=== PATIENT | male | born 1930 | race Caucasian/White ===

== ENCOUNTER 2017-12-04 13:33 | Emergency (ER) | payer MEDICARE, OTHER ==
[~2017-12-04] VITALS: Ht 165.1 cm; Wt 56.7 kg
[2017-12-04] MEDS ORDERED: MIRTAZAPINE 30 MG TABLET PO (14:01)
[2017-12-04] MEDS ORDERED: HYDROCODONE-ACETAMIN 5-325 MG PO (14:01)
[2017-12-04] MEDS ORDERED: NOVOLOG 100 UNIT/ML (14:01)
[2017-12-04] MEDS ORDERED: MELA3TAB52 PO (14:09)
[2017-12-04] MEDS ORDERED: DOCU-141 PO (14:09)
[2017-12-04] MEDS ORDERED: ALUM PO (14:09)
[2017-12-04] MEDS ORDERED: IPRA0.2S48 INH (14:09)
[2017-12-04] MEDS ORDERED: ONDA8TAB9 SL (14:09)
[2017-12-04] MEDS ORDERED: [UNRECOGNIZED DRUG - OTHER] PO (14:09)
[2017-12-04] MEDS ORDERED: SENN-167 PO (14:09)
[2017-12-04] MEDS ORDERED: BISA10SU8 RC (14:09)
[2017-12-04] MEDS ORDERED: ACETAMINOPHEN ES 500 MG TABLET PO ONE (15:00)
--- NOTE | 2017-12-04 15:15 | NUR ---
[facility] called for S transport back to [facility], eta 1630, trip#[id number].
[2017-12-04] MEDS ORDERED: ACETAMINOPHEN ES 500 MG TABLET ONE (15:16)
--- NOTE | 2017-12-04 16:57 | NUR ---
Pt d/c back to [facility] via [facility] BLS transport. ACI and Rx for [place] given to EMT.
== END 2017-12-04 16:58 | disposition home or self-care (01) ==
LOC: ER 13:33
DX: S52.502A Unspecified fracture of the lower end of left radius, initial encounter for closed fracture (principal); I50.9 Heart failure, unspecified; I13.0 Hypertensive heart and chronic kidney disease with heart failure and stage 1 through stage 4 chronic kidney disease, or unspecified chronic kidney disease; E11.22 Type 2 diabetes mellitus with diabetic chronic kidney disease; N18.9 Chronic kidney disease, unspecified; F17.200 Nicotine dependence, unspecified, uncomplicated; W18.30XA Fall on same level, unspecified, initial encounter; Y93.89 Activity, other specified; Y92.89 Other specified places as the place of occurrence of the external cause; Y99.8 Other external cause status
CPT/HCPCS: 73110; A4663; A9150

== ENCOUNTER 2017-12-10 12:55 | Emergency (ER) | payer MEDICARE, OTHER ==
[~2017-12-10] VITALS: Ht 160 cm; Wt 54.4 kg
[~2017-12-10 12:55] MED LIST: ALUM PO; BISA10SU8 RC; DOCU-141 PO; HYDROCODONE-ACETAMIN 5-325 MG PO; IPRA0.2S48 INH; MELA3TAB52 PO; MIRTAZAPINE 30 MG TABLET PO; NOVOLOG 100 UNIT/ML; ONDA8TAB9 SL; SENN-167 PO; [UNRECOGNIZED DRUG - OTHER] PO
--- NOTE | 2017-12-10 13:41 | NUR ---
PT IS IN ROOM #1B. DR PICKARD EVALUATED THE PT.
--- NOTE | 2017-12-10 13:58 | NUR ---
Called Med response for Tx back to facility, trip # [id number], ETA 1 hour.
--- NOTE | 2017-12-10 14:32 | NUR ---
REPORT WAS GIVEN TO PT'S NURSING FACILITY.
--- NOTE | 2017-12-10 15:28 | NUR ---
PT WAS D/C TO HIS NURSING FACILITY VIA BLS AMBULANCE. REPORT WAS GIVEN TO AMBULANCE EMT AND TO NURSING FACILITY DYNAMOMETER TUNER.
[2017-12-10 15:41] VITALS: BP 159/75
== END 2017-12-10 15:42 | disposition home or self-care (01) ==
LOC: ER 12:55
DX: S62.102D Fracture of unspecified carpal bone, left wrist, subsequent encounter for fracture with routine healing (principal); I25.10 Atherosclerotic heart disease of native coronary artery without angina pectoris; I25.2 Old myocardial infarction; K21.9 Gastro-esophageal reflux disease without esophagitis; I12.0 Hypertensive chronic kidney disease with stage 5 chronic kidney disease or end stage renal disease; N18.6 End stage renal disease; E11.9 Type 2 diabetes mellitus without complications; F17.200 Nicotine dependence, unspecified, uncomplicated; X58.XXXD Exposure to other specified factors, subsequent encounter
CPT/HCPCS: 29125; 73110; 99284; A4663

== ENCOUNTER 2018-03-05 17:02 | Inpatient (IN) | payer MEDICARE, OTHER ==
[~2018-03-05] VITALS: Ht 152.4 cm; Wt 47.0 kg
[~2018-03-05 17:02] MED LIST changes: -SENN-167 PO; +SENN-168 PO
--- NOTE | 2018-03-05 17:04 | NUR ---
Dr Song at the bedside for MSE.
[2018-03-05] MEDS ORDERED: HALOPERIDOL LACTATE 5 MG/1 ML VIAL IV ONE (17:15)
[2018-03-05] MEDS ORDERED: FUROSEMIDE 20 MG/2 ML VIAL IV ONE (17:15)
[2018-03-05] MEDS ORDERED: MORPHINE SULFATE 2 MG/1 ML DISP.SYRIN IV ONE (17:15)
[2018-03-05] MEDS ORDERED: LORAZEPAM 2 MG/1 ML VIAL IV ONE (17:15)
[2018-03-05] MEDS ORDERED: FUROSEMIDE 40 MG/4 ML VIAL ONE (17:16)
[2018-03-05] MEDS ORDERED: HALOPERIDOL LACTATE 5 MG/1 ML VIAL ONE (17:16)
[2018-03-05] MEDS ORDERED: LORAZEPAM 2 MG/1 ML VIAL ONE (17:17)
[2018-03-05] MEDS ORDERED: MORPHINE SULFATE 4 MG/1 ML DISP.SYRIN ONE (17:17)
[2018-03-05] MEDS ORDERED: DEXT15DR6 RIGHTEYE (17:30)
[2018-03-05] MEDS ORDERED: HYDR-3326 PO (17:30)
[2018-03-05] MEDS ORDERED: MAG355OR18 PO (17:30)
[2018-03-05] MEDS ORDERED: ALBU2.5V38 IH (17:30)
[2018-03-05] MEDS ORDERED: MULT-213 PO (17:30)
[2018-03-05] MEDS ORDERED: ACET-2154 PO (17:30)
[2018-03-05] MEDS ORDERED: NOVOLOG (17:30)
[2018-03-05] MEDS ORDERED: MIRT15TA7 PO (17:30)
[2018-03-05 17:33] LABS: BASOPHILS # (AUTO) 0.1 K/uL (0.0-8.0); BASOPHILS % (AUTO) 0.6 % (0.0-2.0); EOSINOPHILS # (AUTO) 0.2 K/uL (0.0-0.7); EOSINOPHILS % (AUTO) 1.1 % (0.0-7.0); HEMATOCRIT 29.1 % (36.7-47.1); HEMOGLOBIN 9.6 g/dL (12.5-16.3); LYMPHOCYTES # (AUTO) 2.4 K/uL (20.0-40.0); LYMPHOCYTES % (AUTO) 16.9 % (20.5-51.5); MEAN CORPUSCULAR HEMOGLOBIN 29.6 uug (23.8-33.4); MEAN CORPUSCULAR HGB CONC 33 g/dL (32.5-36.3); MEAN CORPUSCULAR VOLUME 89.6 fL (73.0-96.2); MONOCYTES # (AUTO) 0.9 K/uL (2.0-10.0); MONOCYTES % (AUTO) 6.5 % (0.0-11.0); NEUTROPHILS # (AUTO) 10.6 K/uL (1.8-8.9); NEUTROPHILS % (AUTO) 74.9 % (38.5-71.5); PLATELET COUNT (AUTO) 257 K/uL (152-348); RED BLOOD CELL COUNT(AUTO) 3.25 MIL/uL (4.06-5.63); WHITE BLOOD COUNT (AUTO) 14.1 K/uL (3.6-10.2)
[2018-03-05 17:40] LABS: CARBON DIOXIDE 20 mmol/L (21-32); CHLORIDE 95 mmol/L (98-107); CREATININE 2.6 mg/dL (0.6-1.3); GLUCOSE 198 mg/dL (74-106); POTASSIUM 4.4 mmol/L (3.5-5.1); UREA NITROGEN, BLOOD 48 mg/dL (7-18)
[2018-03-05 17:52] LABS: ALANINE AMINOTRANSFERASE 14 U/L (16-63); ALKALINE PHOSPHATASE 84 U/L (50-136); ASPARTATE AMINOTRANSFERASE 15 U/L (15-37); BILIRUBIN,DIRECT 0.2 mg/dL (0.0-0.2); BILIRUBIN,TOTAL 0.7 mg/dL (0.2-1.0)
--- NOTE | 2018-03-05 17:55 | NUR ---
Patient is resting comfortably in bed with eyes closed, NAD noted.
--- NOTE | 2018-03-05 18:15 | NUR ---
Dr Moore spoke to ER MD and pt will be admitted to TELE.
[2018-03-05] MEDS ORDERED: ACETAMINOPHEN 650 MG SUPP.RECT RC PRN (18:45)
[2018-03-05] MEDS ORDERED: MORPHINE SULFATE 2 MG/1 ML DISP.SYRIN IV PRN (18:45)
[2018-03-05] MEDS ORDERED: ONDANSETRON 4 MG/2 ML VIAL IV PRN (18:45)
--- NOTE | 2018-03-05 18:59 | NUR ---
PATIENT CAME FROM ER BY MORENO A/O *1 , AGITATED AT TIMES. NO DISTRESS AT THE MOMENT. SAFETY MEASURES REINFORCED, RAILS UP *2, LOW BED POSITION. WILL GIVE REPORT TO UPCOMING NURSE NITIN
[2018-03-05 20:00] VITALS: BP 119/61
[2018-03-05] MEDS ORDERED: ENOXAPARIN SODIUM 30 MG/0.3 ML DISP.SYRIN SQ SCH (21:00)
[2018-03-05] MEDS: MIRTAZAPINE 15 MG TABLET PO SCH (21:00)
[2018-03-06] MEDS: FUROSEMIDE 40 MG/4 ML VIAL IV SCH ×2 (00:12→05:38)
[2018-03-06 00:20] VITALS: BP 130/66
[2018-03-06] MEDS: MORPHINE SULFATE 4 MG/1 ML DISP.SYRIN IV PRN ×2 (02:02→13:41)
[2018-03-06] MEDS ORDERED: ASPIRIN 81 MG TAB.CHEW PO ONE (03:00)
[2018-03-06] MEDS ORDERED: HEPARIN SODIUM,PORCINE 5,000 UNITS/ML VIAL IVP SCH (03:00)
[2018-03-06] MEDS ORDERED: LORAZEPAM 2 MG/1 ML VIAL IV ONE (03:00)
[2018-03-06] MEDS ORDERED: HEPARIN/D5W DRIP 500 ML ONE (03:13)
[2018-03-06] MEDS: HEPARIN/D5W DRIP 500 ML IV PRN (03:20)
--- NOTE | 2018-03-06 05:06 | NUR ---
patient rested fairly well; c/o pain, morphine given x1; 3rd troponin 3.212, relayed to Dr Colmenares and with new orders; started on heparin drip at 15 ml/hr; plan of care initiated; continue to monitor; VSS; condom cath in place.
[2018-03-06 05:30] VITALS: BP 136/75
[2018-03-06 06:17] LABS: BASOPHILS # (AUTO) 0.1 K/uL (0.0-8.0); BASOPHILS % (AUTO) 0.3 % (0.0-2.0); HEMATOCRIT 30.6 % (36.7-47.1); HEMOGLOBIN 10.1 g/dL (12.5-16.3); LYMPHOCYTES # (AUTO) 1.5 K/uL (20.0-40.0); LYMPHOCYTES % (AUTO) 8.1 % (20.5-51.5); MEAN CORPUSCULAR HEMOGLOBIN 29.4 uug (23.8-33.4); MEAN CORPUSCULAR HGB CONC 33 g/dL (32.5-36.3); MEAN CORPUSCULAR VOLUME 88.8 fL (73.0-96.2); MONOCYTES # (AUTO) 0.7 K/uL (2.0-10.0); MONOCYTES % (AUTO) 3.9 % (0.0-11.0); NEUTROPHILS # (AUTO) 16.3 K/uL (1.8-8.9); NEUTROPHILS % (AUTO) 87.7 % (38.5-71.5); PLATELET COUNT (AUTO) 230 K/uL (152-348); RED BLOOD CELL COUNT(AUTO) 3.45 MIL/uL (4.06-5.63); WHITE BLOOD COUNT (AUTO) 18.6 K/uL (3.6-10.2)
[2018-03-06 06:40] LABS: CARBON DIOXIDE 21 mmol/L (21-32); CHLORIDE 93 mmol/L (98-107); CHOLESTEROL 211 mg/dL (<200); HDL CHOLESTEROL 68 mg/dL (40-60); MAGNESIUM 1.7 mg/dL (1.8-2.4); PHOSPHOROUS 5.2 mg/dL (2.5-4.9); POTASSIUM 5.1 mmol/L (3.5-5.1); TRIGLYCERIDES 59 MG/DL (30-150); UREA NITROGEN, BLOOD 55 mg/dL (7-18)
[2018-03-06 06:41] LABS: THYROID STIMULATING HORMONE 1.882 mIU/mL (0.358-3.740)
[2018-03-06 06:52] LABS: GLUCOSE 375 mg/dL (74-106)
--- NOTE | 2018-03-06 07:31 | NUR ---
TROPONIN 20+ this AM; paged DR Colmenares, Dr Roberson and also messaged LIZETT Gallegos; awaiting call back; report given to Glenys Gaspar RN;
--- NOTE | 2018-03-06 07:45 | NUR ---
Patient is resting in bed, no distress at the moment, Heparin is running 750units/hr, no signs of visual bleeding, no complains at the moment. TROPONIN 20+ this AM;LANCE Joshi paged DR Colmenares, Dr Roberson and also messaged LIZETT Gallegos; awaiting call back. Cont to monitor Trop, S/S bleeding, Chest pain, will follow up with lab PTT 0900 scheduled Safety measures reinforced, cont w/treatment and monitoring
[2018-03-06] MEDS: PANTOPRAZOLE SODIUM 40 MG VIAL IV SCH (09:48)
--- NOTE | 2018-03-06 10:48 | NUR ---
aPTT result 37.9, increase 100unit/hr. Heparin currently running at 850units/hr. Orders noted and carried out. EF 35%, pt Telemetry shows him going from sinus tachy to sinus rhythm. Rosy PHOENIX notified.
[2018-03-06 11:11] VITALS: BP 118/66
[2018-03-06] MEDS: ASPIRIN 81 MG TAB.CHEW PO SCH (12:45)
[2018-03-06] MEDS: ATORVASTATIN 40 MG TABLET PO SCH ×2 (12:45→21:00)
[2018-03-06] MEDS: CARVEDILOL 6.25 MG TABLET PO SCH ×2 (12:45→18:00)
[2018-03-06] MEDS ORDERED: CLOPIDOGREL 75 MG TABLET PO ONE (12:45)
[2018-03-06] MEDS ORDERED: DEXTROSE 50% 50 ML DISP.SYRIN IV PRN (13:15)
[2018-03-06] MEDS: BLOOD SUGAR DIAGNOSTIC 1 EACH STRIP VI SCH ×4 (13:15→21:19)
--- NOTE | 2018-03-06 14:00 | NUR ---
ZHU CATH WAS INSERTED #16 BY LANCE GANDARA. UA WAS SENT TO THE LAB
[2018-03-06 14:26] LABS: *BILIRUBIN,URIN NEGATIVE (NEGATIVE); *BLOOD, URINE Trace-lysed (NEGATIVE); *CLARITY,URINE CLEAR (CLEAR); *COLOR,URINE LIGHT YELLOW (YELLOW); *KETONES,URINE NEGATIVE (NEGATIVE); *UROBILINOGEN,URINE 0.2 E.U./dl (NORMAL); LEUKOCYTE ESTERASE ,URINE NEGATIVE (NEGATIVE); NITRITE, URINE NEGATIVE (NEGATIVE); UGLUCOSE 1+ (NEGATIVE)
[2018-03-06 14:46] LABS: SQUAMOUS EPITHELIAL CELL,UR NONE SEEN /HPF (NONE SEEN); WBC,URINE 0-3 /HPF (0-3)
[2018-03-06 14:47] LABS: BACTERIA,URINE NONE SEEN /HPF (NONE SEEN)
[2018-03-06 14:49] LABS: URINE AMORPHOUS URATE FEW /HPF
[2018-03-06 15:15] VITALS: BP 115/61
[2018-03-06 17:10] LABS: *CREATININE,URINE 36.6 mg/dL (30-125); *URINE TOTAL PROTEIN RANDOM 98.1 mg/dL (<150/24HR)
[2018-03-06] MEDS: INSULIN REGULAR, HUMAN 300 UNIT/3 ML VIAL SQ PRN ×2 (17:32→21:26)
[2018-03-06] MEDS: IV NS 1000 ML 1,000 ML IV PRN (17:50)
--- NOTE | 2018-03-06 18:02 | NUR ---
END OF SHIFT PATIENT IS RESTING IN BED, A/O *1, AGGRESSIVE AT TIMES. NO DISTRESS AT THE MOMENT. NC @2L SAT 96%, HEPARIN DRIP IS RUNNING AT 950 UN/HR AT THIS MOMENT. WAS INCREASED AT 1547 PER PROTOCOL BECAUSE APTT CAME OUT @1546 35. 3. PATIENT BEFORE WAS ON HEPARIN DRIP FROM [id number] ON 850 UN/HR. BEFORE ( BEGINNING OF SHIFT) [id number] WAS RUNNING ON 750 UN/HR. WAS SEEN BY LENS COATER, PHYSICIAN, DIETITIAN TODAY--> SEE COMMENTS. SWALLOW EVAL. STILL NEEDS TO BE DONE. WOUND CONSULT EVALUATED, CULTURES SENT-> WOUND DRESSING WAS DONE ACCORDANTLY BY ME. NEW IV WAS STARTED ON LEFT FOREARM 22G AND NS WAS STARTED @60ML/HR. CONT TO MONITOR.
[2018-03-06 19:57] VITALS: BP 120/68
--- NOTE | 2018-03-06 20:00 | NUR ---
AWAKE. REFUSED TO BE TOUCHED.COMBATIVE, REFUSED PILLS,SPITS.DRESSINGS ON THE FOREHEAD DRY AND INTACT,LEFT HEEL DRESSINS DRY AND INTACT.REPOSITION FOR COMFORT. HEPARIN DRIP INFUSING WELL ON RIGHT FOREARM.
[2018-03-06] MEDS: MIRTAZAPINE 15 MG TABLET PO SCH (21:00)
--- NOTE | 2018-03-06 23:55 | NUR ---
PTT 39.6 INCREASED HEPARIN TO 1050 UNITS.COMBATIVE,REFUSED TO BE TOUCHED REPOSITIONED FOR COMFORT.SLEPT AT SHORT INTERVALS.
[2018-03-07] VITALS: BP 127/72
[2018-03-07 04:00] VITALS: BP 130/70
[2018-03-07] MEDS ORDERED: HEPARIN/D5W DRIP 500 ML ONE (05:05)
[2018-03-07] MEDS: BLOOD SUGAR DIAGNOSTIC 1 EACH STRIP VI SCH ×4 (05:32→21:03)
[2018-03-07] MEDS: HEPARIN/D5W DRIP 500 ML IV PRN (05:43)
[2018-03-07 06:05] LABS: BASOPHILS # (AUTO) 0.1 K/uL (0.0-8.0); BASOPHILS % (AUTO) 0.4 % (0.0-2.0); EOSINOPHILS # (AUTO) 0.1 K/uL (0.0-0.7); EOSINOPHILS % (AUTO) 0.3 % (0.0-7.0); HEMATOCRIT 29.3 % (36.7-47.1); HEMOGLOBIN 9.6 g/dL (12.5-16.3); LYMPHOCYTES # (AUTO) 2.1 K/uL (20.0-40.0); LYMPHOCYTES % (AUTO) 10.2 % (20.5-51.5); MEAN CORPUSCULAR HEMOGLOBIN 28.9 uug (23.8-33.4); MEAN CORPUSCULAR HGB CONC 33 g/dL (32.5-36.3); MONOCYTES # (AUTO) 1.2 K/uL (2.0-10.0); MONOCYTES % (AUTO) 5.9 % (0.0-11.0); NEUTROPHILS % (AUTO) 83.2 % (38.5-71.5); PLATELET COUNT (AUTO) 249 K/uL (152-348); RED BLOOD CELL COUNT(AUTO) 3.33 MIL/uL (4.06-5.63); WHITE BLOOD COUNT (AUTO) 20.4 K/uL (3.6-10.2)
[2018-03-07 06:20] LABS: ALANINE AMINOTRANSFERASE 18 U/L (16-63); ALKALINE PHOSPHATASE 77 U/L (50-136); ASPARTATE AMINOTRANSFERASE 67 U/L (15-37); BILIRUBIN,TOTAL 0.5 mg/dL (0.2-1.0); CARBON DIOXIDE 23 mmol/L (21-32); CHLORIDE 98 mmol/L (98-107); CREATININE 3.2 mg/dL (0.6-1.3); GLUCOSE 97 mg/dL (74-106); MAGNESIUM 1.7 mg/dL (1.8-2.4); PHOSPHOROUS 5.1 mg/dL (2.5-4.9); POTASSIUM 4.9 mmol/L (3.5-5.1); TOTAL PROTEIN, SERUM 7.6 g/dL (6.4-8.2); UREA NITROGEN, BLOOD 64 mg/dL (7-18)
[2018-03-07] MEDS ORDERED: HEPARIN SODIUM,PORCINE 5,000 UNITS/ML VIAL IV PRN (07:15)
[2018-03-07] MEDS: CARVEDILOL 6.25 MG TABLET PO SCH ×3 (08:00→17:28)
[2018-03-07] MEDS: CLOPIDOGREL 75 MG TABLET PO SCH ×2 (08:22→09:00)
[2018-03-07] MEDS: ASPIRIN 81 MG TAB.CHEW PO SCH ×2 (08:22→09:00)
[2018-03-07] MEDS: PANTOPRAZOLE SODIUM 40 MG VIAL IV SCH (08:22)
[2018-03-07] MEDS: SODIUM HYPOCHLORITE 0.125% 473 ML BOTTLE TP SCH (08:52)
--- NOTE | 2018-03-07 09:43 | NUR ---
The patient refused the exams. LANCE Purvis noted. RN will call the tech when the patient is willing to get the exams.
[2018-03-07] MEDS ORDERED: VANCOMYCIN IV 1 G in PREMIXED 0 EACH IV SCH (11:30)
[2018-03-07] MEDS ORDERED: PIPERACILLIN/TAZOBACTAM/D5W 3.375 G in PREMIXED 1 EACH IV SCH (11:30)
[2018-03-07 11:40] VITALS: BP 133/73
--- NOTE | 2018-03-07 12:01 | NUR ---
Clinical Pharmacy Note: Vancomycin Pharmacy to Dose Subjective: To start vancomycin in this 87 y/o male for indication of "suspected infection" (wbc 20.4, AMS, IGOR, foot wound cx pending gram neg rods and staph). Zosyn also started Objective: weight 50kg height 152cm BUN 64 Scr 3.2 (no HD) Wbc 20.4 temp 98.5 Assessment/Plan Will dose one time 750mg vancomycin and order random with tomorrow am labs. Will dose per level as renal function reduced. Will check level tomorrow and dose again if indicated. Will follow
[2018-03-07] MEDS ORDERED: VANCOMYCIN IV 750 MG in IV DEXTROSE 5% 250 ML IV ONE (13:00)
[2018-03-07] MEDS: PIPERACILLIN/TAZOBACTAM/D5W 2.25 G in PREMIXED 1 EACH IV SCH ×2 (15:29→21:22)
[2018-03-07 16:12] VITALS: BP 109/58
[2018-03-07] MEDS: ENSURE ENLIVE (VAN) 240 ML LIQUID PO SCH (17:26)
[2018-03-07] MEDS: INSULIN REGULAR, HUMAN 300 UNIT/3 ML VIAL SQ PRN ×2 (17:31→20:40)
[2018-03-07] MEDS: IV NS 1000 ML 1,000 ML IV PRN (19:06)
[2018-03-07 20:00] VITALS: BP 106/56
[2018-03-07] MEDS: ATORVASTATIN 40 MG TABLET PO SCH (20:41)
[2018-03-07] MEDS: MIRTAZAPINE 15 MG TABLET PO SCH (20:41)
[2018-03-08 00:23] VITALS: BP 110/60
[2018-03-08] MEDS: MORPHINE SULFATE 4 MG/1 ML DISP.SYRIN IV PRN ×2 (00:59→11:43)
[2018-03-08] MEDS: HEPARIN/D5W DRIP 500 ML IV PRN (03:41)
[2018-03-08 04:30] VITALS: BP 106/54
[2018-03-08] MEDS: PIPERACILLIN/TAZOBACTAM/D5W 2.25 G in PREMIXED 1 EACH IV SCH ×3 (05:03→21:37)
--- NOTE | 2018-03-08 06:00 | NUR ---
NURSING NOTES Patient rested well in between care; requested for tea and drak with aspiration precaution; repositioned q2h; needs attended; continue to monitor; continue plan of care.
[2018-03-08 06:26] LABS: BASOPHILS # (AUTO) 0.1 K/uL (0.0-8.0); BASOPHILS % (AUTO) 0.6 % (0.0-2.0); EOSINOPHILS # (AUTO) 0.1 K/uL (0.0-0.7); EOSINOPHILS % (AUTO) 0.9 % (0.0-7.0); HEMATOCRIT 25.2 % (36.7-47.1); HEMOGLOBIN 8.2 g/dL (12.5-16.3); LYMPHOCYTES # (AUTO) 1.4 K/uL (20.0-40.0); LYMPHOCYTES % (AUTO) 8.2 % (20.5-51.5); MEAN CORPUSCULAR HEMOGLOBIN 29.2 uug (23.8-33.4); MEAN CORPUSCULAR HGB CONC 33 g/dL (32.5-36.3); MEAN CORPUSCULAR VOLUME 89.1 fL (73.0-96.2); MONOCYTES # (AUTO) 0.9 K/uL (2.0-10.0); MONOCYTES % (AUTO) 5.4 % (0.0-11.0); NEUTROPHILS # (AUTO) 14.1 K/uL (1.8-8.9); NEUTROPHILS % (AUTO) 84.9 % (38.5-71.5); PLATELET COUNT (AUTO) 193 K/uL (152-348); RED BLOOD CELL COUNT(AUTO) 2.83 MIL/uL (4.06-5.63); WHITE BLOOD COUNT (AUTO) 16.6 K/uL (3.6-10.2)
[2018-03-08] MEDS: BLOOD SUGAR DIAGNOSTIC 1 EACH STRIP VI SCH ×4 (06:30→20:30)
[2018-03-08 06:39] LABS: CARBON DIOXIDE 23 mmol/L (21-32); CHLORIDE 99 mmol/L (98-107); CREATININE 3.2 mg/dL (0.6-1.3); GLUCOSE 118 mg/dL (74-106); MAGNESIUM 1.8 mg/dL (1.8-2.4); PHOSPHOROUS 6.1 mg/dL (2.5-4.9); POTASSIUM 4.5 mmol/L (3.5-5.1)
[2018-03-08 06:48] LABS: UREA NITROGEN, BLOOD 77 mg/dL (7-18)
[2018-03-08] MEDS: CLOPIDOGREL 75 MG TABLET PO SCH (08:07)
[2018-03-08] MEDS: CARVEDILOL 6.25 MG TABLET PO SCH ×2 (08:07→17:26)
[2018-03-08] MEDS: PANTOPRAZOLE SODIUM 40 MG VIAL IV SCH (08:07)
[2018-03-08] MEDS: ASPIRIN 81 MG TAB.CHEW PO SCH (08:08)
[2018-03-08] MEDS: SODIUM HYPOCHLORITE 0.125% 473 ML BOTTLE TP SCH (08:09)
[2018-03-08] MEDS: ENSURE ENLIVE (VAN) 240 ML LIQUID PO SCH ×2 (08:13→17:19)
[2018-03-08] MEDS ORDERED: VANCOMYCIN IV 750 MG in IV DEXTROSE 5% 250 ML IV ONE (09:00)
--- NOTE | 2018-03-08 10:00 | NUR ---
Clinical Pharmacy Note: Vancomycin Pharmacy to Dose Subjective: To continue vancomycin in this 87 y/o male for indication of "suspected infection" (wbc 20.4, AMS, IGOR, foot wound cx pending gram neg rods and staph). Zosyn also started, not extended infusion dosing as per RNs pt repeatedly pulls IVs out, PICC line order placed 03/07 Objective: weight 50kg height 152cm BUN 77 Scr 3.2 Wbc 16.6 temp 98 Random with am labs today 10.9 Assessment/Plan Will dose another one time 750mg vancomycin and order random with tomorrow am labs. Will dose per level as renal function reduced. Will check level tomorrow and dose again if indicated. Will follow
[2018-03-08 11:30] VITALS: BP 115/54
--- NOTE | 2018-03-08 11:30 | NUR ---
Patient refused swallow eval x 2 days. Swallow eval done by RN. Daughter brought dentures. Patient able to feed himself and drink fluids with no signs of coughing, sob or aspiration.
[2018-03-08] MEDS: INSULIN REGULAR, HUMAN 300 UNIT/3 ML VIAL SQ PRN ×2 (11:58→20:33)
[2018-03-08 16:31] VITALS: BP 97/56
[2018-03-08] MEDS: IV NS 1000 ML 1,000 ML IV PRN (19:53)
[2018-03-08 20:03] VITALS: BP 120/63
[2018-03-08] MEDS: ATORVASTATIN 40 MG TABLET PO SCH (20:31)
[2018-03-08] MEDS: MIRTAZAPINE 15 MG TABLET PO SCH (20:31)
[2018-03-09] MEDS: MORPHINE SULFATE 4 MG/1 ML DISP.SYRIN IV PRN ×2 (02:53→20:08)
[2018-03-09 05:15] VITALS: BP 107/59
[2018-03-09] MEDS: PIPERACILLIN/TAZOBACTAM/D5W 2.25 G in PREMIXED 1 EACH IV SCH ×3 (05:29→21:07)
[2018-03-09 05:46] LABS: BASOPHILS # (AUTO) 0.1 K/uL (0.0-8.0); BASOPHILS % (AUTO) 0.6 % (0.0-2.0); EOSINOPHILS # (AUTO) 0.2 K/uL (0.0-0.7); EOSINOPHILS % (AUTO) 1.3 % (0.0-7.0); HEMATOCRIT 24.5 % (36.7-47.1); LYMPHOCYTES # (AUTO) 1.4 K/uL (20.0-40.0); LYMPHOCYTES % (AUTO) 8.7 % (20.5-51.5); MEAN CORPUSCULAR HEMOGLOBIN 29.5 uug (23.8-33.4); MEAN CORPUSCULAR HGB CONC 33 g/dL (32.5-36.3); MEAN CORPUSCULAR VOLUME 89.8 fL (73.0-96.2); MONOCYTES % (AUTO) 6.3 % (0.0-11.0); NEUTROPHILS # (AUTO) 13.3 K/uL (1.8-8.9); NEUTROPHILS % (AUTO) 83.1 % (38.5-71.5); PLATELET COUNT (AUTO) 179 K/uL (152-348); RED BLOOD CELL COUNT(AUTO) 2.73 MIL/uL (4.06-5.63)
[2018-03-09 05:58] LABS: CARBON DIOXIDE 20 mmol/L (21-32); CHLORIDE 97 mmol/L (98-107); CREATININE 3.7 mg/dL (0.6-1.3); GLUCOSE 219 mg/dL (74-106); MAGNESIUM 1.6 mg/dL (1.8-2.4); PHOSPHOROUS 6.5 mg/dL (2.5-4.9); POTASSIUM 4.5 mmol/L (3.5-5.1); VANCOMYCIN,RANDOM 18.8 ug/mL (18.0-26.0)
[2018-03-09 06:01] LABS: UREA NITROGEN, BLOOD 83 mg/dL (7-18)
--- NOTE | 2018-03-09 06:20 | NUR ---
End of Shift Report Patient rested well in between care; dressing to PICC line done; pt refused his left foot dressing changed; c/o pain x1 and given with Morphine and rested; pt is screaming this Am and stating he wants to go home today; reorientation given; continue to monitor; continue plan of care.
[2018-03-09] MEDS: BLOOD SUGAR DIAGNOSTIC 1 EACH STRIP VI SCH ×4 (06:41→21:08)
--- NOTE | 2018-03-09 07:30 | NUR ---
Received patient awake in bed not in any form of distress. Patient is alert and oriented x 2. On oxygen support 2lpm via nasal cannula, tolerated. With ongoing IVF at right upper arm PICC line, patent and intact with dressing. With permacath at right upper chest with dressing, intact. With James catheter to urine bag, draining well. Noted clean and intact dressing of left heel. Monitored patient for complaints of pain. Bed in low position, side rails up x 2, call light within reach. Ensured patient safety and comfort. Will continue to monitor.
[2018-03-09] MEDS: INSULIN REGULAR, HUMAN 300 UNIT/3 ML VIAL SQ PRN ×3 (07:46→16:54)
[2018-03-09] MEDS: CARVEDILOL 6.25 MG TABLET PO SCH ×3 (08:00→17:41)
[2018-03-09] MEDS: ASPIRIN 81 MG TAB.CHEW PO SCH ×2 (08:25→09:00)
[2018-03-09] MEDS: CLOPIDOGREL 75 MG TABLET PO SCH ×2 (08:25→09:00)
[2018-03-09] MEDS: PANTOPRAZOLE SODIUM 40 MG VIAL IV SCH (08:26)
[2018-03-09] MEDS: SODIUM HYPOCHLORITE 0.125% 473 ML BOTTLE TP SCH (08:26)
[2018-03-09] MEDS: ENSURE ENLIVE (VAN) 240 ML LIQUID PO SCH ×2 (08:30→17:00)
[2018-03-09] MEDS ORDERED: VANCOMYCIN IV 750 MG in IV DEXTROSE 5% 250 ML IV ONE (10:00)
[2018-03-09] MEDS ORDERED: HYDROMORPHONE 1 MG/1 ML DISP.SYRIN IV ONE (10:15)
[2018-03-09] MEDS ORDERED: LIDOCAINE HCL 1% 20 ML VIAL IJ PRN (10:15)
--- NOTE | 2018-03-09 10:30 | NUR ---
Patient seen and examined by Dr. Mitchell, noted patient for left heel debridement. Dr. Mitchell called patient's daughter for consent to do the procedure, consent attached to chart. Assisted MD to do debridement, one time dilaudid 0.5mg IV given for pain. Patient tolerated the procedure.
[2018-03-09] MEDS ORDERED: MAGNESIUM SULFATE/D5W 100 ML IV SCH (10:45)
[2018-03-09] MEDS ORDERED: HYDROMORPHONE 1 MG/1 ML DISP.SYRIN IV PRN (10:45)
[2018-03-09 11:02] VITALS: BP 109/58
[2018-03-09] MEDS: SERTRALINE HCL 50 MG TABLET PO SCH (11:44)
[2018-03-09] MEDS ORDERED: ALBUTEROL SULFATE 1.25 MG/3 ML NEBU NEB PRN (11:45)
[2018-03-09] MEDS ORDERED: IPRATROPIUM BROMIDE 0.5 MG/2.5 ML NEBU NEB PRN (11:45)
[2018-03-09 15:07] VITALS: BP 105/64
--- NOTE | 2018-03-09 15:24 | NUR ---
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 Zosyn also started, not extended infusion dosing as per RNs pt repeatedly pulls IVs out, PICC line order placed 03/07 Objective: weight 50kg height 152cm BUN 83 Scr 3.7 Wbc 16 temp 98 Random with am labs today 18.8 Assessment/Plan Will dose another one time 750mg vancomycin (given today at 1000)and order random with tomorrow am labs. Will dose per level as renal function reduced. Will check level tomorrow and dose again if indicated. Will Addendum: 03/09/18 at 1529 by ZEE WATSON VANCOMYCIN RANDOM IS ORDERED FOR TOMORROW AT 1500. WILL FOLLOW THE LEVEL FOR FURTHER DOSING.
[2018-03-09] MEDS: IV NS 1000 ML 1,000 ML IV PRN (15:34)
--- NOTE | 2018-03-09 16:00 | NUR ---
Received a call from Jesus Salazar to discontinue dilaudid IV for pain - done.
--- NOTE | 2018-03-09 17:30 | NUR ---
Patient still refusing too eat much and just drinks a little bit of coffee. Noted patient is Farsi speaking, Nenita, patient's daughter called and had her speak with patient to translate and try to encourage the patient to eat. Patient food preference noted and food request noted by dietary, however patient just ate a little bit of fruit for dinner.
--- NOTE | 2018-03-09 18:11 | NUR ---
Patient awake in bed not in any form of distress. Patient is alert and oriented x 2, farsi speaking. On oxygen support 2lpm via nasal cannula, tolerated. With ongoing IVF at right upper arm PICC line, patent and intact with dressing. With permacath at right upper chest with dressing, intact. With James catheter to urine bag, draining well. Noted clean and intact dressing of left heel. Both heels offloaded. Turned to sides. No complaints of pain made after wound debridement. Bed in low position, side rails up x 2, call light within reach. Ensured patient safety and comfort.
[2018-03-09] MEDS ORDERED: MORPHINE SULFATE 2 MG/1 ML DISP.SYRIN IV PRN (18:30)
[2018-03-09 20:00] VITALS: BP 115/72
[2018-03-09] MEDS: MIRTAZAPINE 15 MG TABLET PO SCH (20:07)
[2018-03-09] MEDS: CULTURELLE CAPSULE PO SCH (20:07)
[2018-03-09] MEDS: ATORVASTATIN 40 MG TABLET PO SCH (21:08)
[2018-03-10] MEDS: MORPHINE SULFATE 4 MG/1 ML DISP.SYRIN IV PRN ×2 (02:18→10:07)
[2018-03-10 04:00] VITALS: BP 139/64
[2018-03-10] MEDS: PIPERACILLIN/TAZOBACTAM/D5W 2.25 G in PREMIXED 1 EACH IV SCH ×3 (05:22→21:29)
--- NOTE | 2018-03-10 06:00 | NUR ---
PAtient rested well in between care; no acute distress; c/o pain, medicated accordingly; dressing changed to left heel; continue to monitor; continue plan of care.
[2018-03-10] MEDS: PANTOPRAZOLE SODIUM 40 MG TABLET.DR PO SCH (06:08)
[2018-03-10] MEDS: BLOOD SUGAR DIAGNOSTIC 1 EACH STRIP VI SCH ×4 (06:09→21:00)
[2018-03-10 06:33] LABS: BASOPHILS % (AUTO) 0.3 % (0.0-2.0); EOSINOPHILS # (AUTO) 0.1 K/uL (0.0-0.7); EOSINOPHILS % (AUTO) 0.7 % (0.0-7.0); HEMATOCRIT 23.7 % (36.7-47.1); HEMOGLOBIN 7.7 g/dL (12.5-16.3); LYMPHOCYTES # (AUTO) 1.2 K/uL (20.0-40.0); LYMPHOCYTES % (AUTO) 7.3 % (20.5-51.5); MEAN CORPUSCULAR HEMOGLOBIN 30.1 uug (23.8-33.4); MEAN CORPUSCULAR HGB CONC 32 g/dL (32.5-36.3); MEAN CORPUSCULAR VOLUME 93.3 fL (73.0-96.2); MONOCYTES % (AUTO) 5.9 % (0.0-11.0); NEUTROPHILS # (AUTO) 14.2 K/uL (1.8-8.9); NEUTROPHILS % (AUTO) 85.8 % (38.5-71.5); PLATELET COUNT (AUTO) 170 K/uL (152-348); RED BLOOD CELL COUNT(AUTO) 2.54 MIL/uL (4.06-5.63); WHITE BLOOD COUNT (AUTO) 16.6 K/uL (3.6-10.2)
[2018-03-10 06:46] LABS: CARBON DIOXIDE 19 mmol/L (21-32); CHLORIDE 102 mmol/L (98-107); CREATININE 3.9 mg/dL (0.6-1.3); GLUCOSE 88 mg/dL (74-106); MAGNESIUM 1.9 mg/dL (1.8-2.4); PHOSPHOROUS 6.3 mg/dL (2.5-4.9); POTASSIUM 4.3 mmol/L (3.5-5.1)
[2018-03-10 06:47] LABS: UREA NITROGEN, BLOOD 89 mg/dL (7-18)
--- NOTE | 2018-03-10 07:25 | NUR ---
PATIENT IN BED SEEN ON ROUNDS AWAKE NO VERBAL RESPONSE WHEN HE DOES SPEAK ITS INCOHERENT AND UNABLE TO CARRY ON CONVERSATION ALL NEEDS ANTICIPATED AND SATISFIED.ON CONTACT ISOLATION AND PRECAUTION LEFT HEEL WOUND WITH DRESSING DRY AND INTACT HEELS FLOATED MADE COMFORTABLE.
[2018-03-10] MEDS: CARVEDILOL 6.25 MG TABLET PO SCH ×2 (08:00→17:17)
[2018-03-10] MEDS: ASPIRIN 81 MG TAB.CHEW PO SCH (08:29)
[2018-03-10] MEDS: CLOPIDOGREL 75 MG TABLET PO SCH (08:30)
[2018-03-10] MEDS: SERTRALINE HCL 50 MG TABLET PO SCH (08:30)
[2018-03-10] MEDS: CULTURELLE CAPSULE PO SCH ×2 (08:30→21:00)
[2018-03-10] MEDS: ENSURE ENLIVE (VAN) 240 ML LIQUID PO SCH ×2 (09:36→16:39)
[2018-03-10] MEDS: IV NS 1000 ML 1,000 ML IV PRN (09:37)
--- NOTE | 2018-03-10 10:00 | NUR ---
DR ZA PAZ SPOKE WITH PATIENTS DAUGHTER TODAY AT LENGTH WITH DISCHARGE PLANNING IN A DAY OR SO PATIENT IS CONFUSED AND DISORIENTED UNABLE TO MAKE NEEDS KNOWN TALKS INCOHERENTLY ALL NEEDS MUST BE ANTICIPATED AND SATISFIED ON FIRST STEP VENTURA TURNED AND REPOSITIONED.O2 IN PROGRESS WITH NO SHORTNESS OF BREATH AT THIS TIME.REMAIN ON CONTACT ISOLATION AND PRECAUTION RELATED TO POSITIVE MRSA LEFT HEEL WOUND WITH TX IN PROGRESS ORDERED.RIGHT UPPER ARM PICC LINE IS INTACT NOT IN DISTRESS AT THIS TIME WILL CONTINUE TO OBSERVE.
--- NOTE | 2018-03-10 10:08 | NUR ---
NOTED FACIAL GRIMACING AND MOANING MEDICATED WITH MORPHINE ORDERED AND WILL OBSERVE
[2018-03-10] MEDS: SODIUM HYPOCHLORITE 0.125% 473 ML BOTTLE TP SCH (10:56)
[2018-03-10] MEDS: INSULIN REGULAR, HUMAN 300 UNIT/3 ML VIAL SQ PRN ×2 (11:39→16:39)
[2018-03-10 12:00] VITALS: BP 142/75
[2018-03-10] MEDS: CALCIUM ACETATE 667 MG CAPSULE PO SCH ×2 (12:41→17:16)
[2018-03-10] MEDS: FUROSEMIDE 40 MG/4 ML VIAL IV SCH ×2 (13:00→16:39)
--- NOTE | 2018-03-10 14:30 | NUR ---
PATIENTS DAUGHTER IS IN THE ROOM SHE WAS EDUCATED ON WEARING ISOLATION GOWN AND GLOVES WHEN SHE IS IN THE ROOM VISITING HER FATHER AND SHE EXPRESSED UNDERSTANDING
--- NOTE | 2018-03-10 15:57 | NUR ---
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 Zosyn also started, not extended infusion dosing as per RNs pt repeatedly pulls IVs out, PICC line order placed 03/07 Objective: weight 50kg height 152cm BUN 89 Scr 3.9 Wbc 16.6 temp 98 Random level @15:00 23.3 Assessment/Plan Will hold the dose for today, and will order another random level with am labs. Will check level tomorrow and dose again if indicated.
--- NOTE | 2018-03-10 16:00 | NUR ---
VANCO RANDOM DONE ORDERED LEVEL IS 23.3
--- NOTE | 2018-03-10 16:01 | NUR ---
CALL RECEIVED FROM Oceen STATED THAT SHE ATTEMPTED TO DO THE ULTRA SOUND BUT PATIENT REFUSED.
--- NOTE | 2018-03-10 16:09 | NUR ---
The patient is confused and combative. Refuses the exam.
[2018-03-10 16:18] VITALS: BP 140/73
[2018-03-10 19:00] VITALS: BP 108/59
[2018-03-10] MEDS: ATORVASTATIN 40 MG TABLET PO SCH (21:00)
[2018-03-10] MEDS: MIRTAZAPINE 15 MG TABLET PO SCH (21:00)
[2018-03-11] MEDS: MORPHINE SULFATE 4 MG/1 ML DISP.SYRIN IV PRN ×3 (02:38→18:04)
[2018-03-11 05:30] VITALS: BP 113/76
[2018-03-11] MEDS: PANTOPRAZOLE SODIUM 40 MG TABLET.DR PO SCH (06:13)
[2018-03-11] MEDS: PIPERACILLIN/TAZOBACTAM/D5W 2.25 G in PREMIXED 1 EACH IV SCH ×3 (06:14→22:06)
[2018-03-11] MEDS: BLOOD SUGAR DIAGNOSTIC 1 EACH STRIP VI SCH ×4 (06:17→20:42)
--- NOTE | 2018-03-11 06:26 | NUR ---
NURSING NOTES patient rested well in between care; refused his meds and accucheck with multiple attempts;YULI Bender interpreted for RN; continue to monitor; continue plan of care.c/o pain, medicated accdgly; dressing changed to left heel.
[2018-03-11 06:36] LABS: BASOPHILS % (AUTO) 0.2 % (0.0-2.0); EOSINOPHILS # (AUTO) 0.1 K/uL (0.0-0.7); EOSINOPHILS % (AUTO) 0.6 % (0.0-7.0); HEMATOCRIT 24.4 % (36.7-47.1); HEMOGLOBIN 7.8 g/dL (12.5-16.3); LYMPHOCYTES # (AUTO) 1.1 K/uL (20.0-40.0); LYMPHOCYTES % (AUTO) 6.5 % (20.5-51.5); MEAN CORPUSCULAR HEMOGLOBIN 30.1 uug (23.8-33.4); MEAN CORPUSCULAR HGB CONC 32 g/dL (32.5-36.3); MEAN CORPUSCULAR VOLUME 93.8 fL (73.0-96.2); MONOCYTES # (AUTO) 1.1 K/uL (2.0-10.0); NEUTROPHILS # (AUTO) 15.1 K/uL (1.8-8.9); NEUTROPHILS % (AUTO) 86.7 % (38.5-71.5); PLATELET COUNT (AUTO) 172 K/uL (152-348); WHITE BLOOD COUNT (AUTO) 17.4 K/uL (3.6-10.2)
[2018-03-11 06:44] LABS: CARBON DIOXIDE 19 mmol/L (21-32); CHLORIDE 99 mmol/L (98-107); CREATININE 4.9 mg/dL (0.6-1.3); GLUCOSE 133 mg/dL (74-106); MAGNESIUM 2.2 mg/dL (1.8-2.4); PHOSPHOROUS 7.7 mg/dL (2.5-4.9); VANCOMYCIN,RANDOM 22.4 ug/mL (18.0-26.0)
[2018-03-11 06:45] LABS: UREA NITROGEN, BLOOD 108 mg/dL (7-18)
--- NOTE | 2018-03-11 07:35 | NUR ---
PATIENT IS AWAKE ALERT TO SELF WITH CONFUSSION AND DISORIENTATION CALLING OUT INCOHERENT AND INAPPROPRIATE REPOSITIONED FOR COMFORT REMAIN ON O2 WITH NO SHORTNESS OF BREATH AT THIS TIME TURNED AND REPOSITIONED AND MADE COMFORTABLE AND WILL CONTINUE TO OBSERVE AND PROVIDE SAFE AND THERAPEUTIC ENVIRONMENT AT ALL TIMES.
[2018-03-11] MEDS: CARVEDILOL 6.25 MG TABLET PO SCH ×2 (08:00→17:00)
[2018-03-11] MEDS: CALCIUM ACETATE 667 MG CAPSULE PO SCH ×3 (08:00→17:01)
[2018-03-11] MEDS: SODIUM HYPOCHLORITE 0.125% 473 ML BOTTLE TP SCH (08:16)
[2018-03-11] MEDS: ENSURE ENLIVE (VAN) 240 ML LIQUID PO SCH ×2 (08:36→17:00)
[2018-03-11] MEDS: CULTURELLE CAPSULE PO SCH ×2 (08:46→20:04)
[2018-03-11] MEDS: CLOPIDOGREL 75 MG TABLET PO SCH (08:46)
[2018-03-11] MEDS: SERTRALINE HCL 50 MG TABLET PO SCH (08:46)
[2018-03-11] MEDS: ASPIRIN 81 MG TAB.CHEW PO SCH (08:46)
--- NOTE | 2018-03-11 08:47 | NUR ---
PATIENT IS STILL CALLING OUT HEY HEY SOMEWHAT LESS BUT STILL UNABLE TO VERBALLY RELATE NEEDS ALL NEEDS ANTICIPATED AND SATISFIED WILL CONTINUE TO OBSERVE.
[2018-03-11 11:20] VITALS: BP 129/73
--- NOTE | 2018-03-11 11:24 | NUR ---
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 Zosyn also started, not extended infusion dosing as per RNs pt repeatedly pulls IVs out, PICC line order placed 03/07 Objective: weight 50kg height 152cm BUN 108 Scr 4.9 Wbc 17.4 temp 97.4 Random level @0600: 22.4 Assessment/Plan Based on today's random, will hold the dose for today, and will order another random level with am labs. Will check level tomorrow and dose again if indicated.
[2018-03-11] MEDS: INSULIN REGULAR, HUMAN 300 UNIT/3 ML VIAL SQ PRN ×3 (12:12→20:42)
--- NOTE | 2018-03-11 13:32 | NUR ---
PER THE WIRER PASSENGER CAR SANDRA THEY ARE UNABLE TO REMOVE THE PERMA CATH WILL NEED TO BE REMOVED BY A VASCULAR SURGEON SO DR PAZ AWARE TO CALL FOR A VASCULAR DOCTOR
--- NOTE | 2018-03-11 14:04 | NUR ---
PATIENT SEEN AND EXAMINED BY DR MUNGUIA WITH ORDER FOR A CHEST XRAY STAT AND NOTED
[2018-03-11 15:05] VITALS: BP 118/64
--- NOTE | 2018-03-11 17:32 | NUR ---
DR ROGERS DPM HERE TO SEE PATIENT DRESSING CHANGED ORDERED.
--- NOTE | 2018-03-11 18:00 | NUR ---
PATIENT CONTINUES TO REFUSE MEDICATIONS AND FOOD TAKES A FEW BITE OF HIS MEALS WITH LOTS OF ENCOURAGEMENTS AND ASSISTANCE DRINKING HIS ENSURE FEW SIPS HERE AND THERE MD AWARE CALL RECEIVED FROM THE PATIENTS DAUGHTER AMADOR UPDATED HER ON THE PATIENTS CONDITION OF NOT WANTING TO EAT AND REFUSING MEDICATIONS DESPITE ALL WAYS TO MAKE SURE THAT HE TAKES THEM INFORMED HER THAT DR ZA PAZ WILL GIVE HER A CALL TO THE NEXT PLAN OF CARE.
--- NOTE | 2018-03-11 18:40 | NUR ---
STILL YELLING OUT BUT LESS UNABLE TO RELATE NEEDS TALKS IN [place] CITIZEN AND SOMETIMES IN [place]AR[place] INCOHERENTLY MADE COMFORTABLE WILL CONTINUE TO MONITOR.
[2018-03-11 20:00] VITALS: BP 115/73
[2018-03-11] MEDS ORDERED: LORAZEPAM 2 MG/1 ML VIAL IV ONE (20:00)
[2018-03-11] MEDS: ATORVASTATIN 40 MG TABLET PO SCH (20:04)
[2018-03-11] MEDS: MIRTAZAPINE 15 MG TABLET PO SCH (20:04)
--- NOTE | 2018-03-11 20:10 | NUR ---
PATIENT AWAKE IN BED. ALERT TO SELF ONLY. CONFUSED. PATIENT IS YELLING AND SCREAMING. ATTEMPTING TO PULL ON IV LINES. CALLED OUT TO CAROLINE-INSTRUMENTATION AND CONTROL TECHNICIAN SOCIAL WORK PROFESSOR FOR FURTHER ORDERS. VSS. ON O2 3L NC. PICC LINE INTACT AND NOTED TO RIGHT UPPER ARM. NO S/S OF PAIN OR DISCOMFORT. NO FACIAL GRIMACE NOTED. PATIENT KEEPS SCREAMING OUT FOR "CIGAR," AND POINTING TO HIS MOUTH. RECEIVED ORDERS FROM INSTRUMENTATION AND CONTROL TECHNICIAN. ALL NEEDS ATTENDED. WILL CONTINUE TO MONITOR AND ASSESS.
--- NOTE | 2018-03-11 20:15 | NUR ---
PATIENT GIVEN ATIVAN 1MG IV X1 PER RN TRAVELING. VSS. ON O2 3L NC. WILL CONTINUE TO MONITOR.
--- NOTE | 2018-03-11 21:00 | NUR ---
PATIENT ASLEEP IN BED. RESTING WELL. NO RESP. DISTRESS NOTED. BED ALARM ON. CALL LIGHT IN REACH. ALL NEEDS ATTENDED. WILL CONTINUE TO MONITOR AND ASSESS.
[2018-03-12 05:04] VITALS: BP 127/56
[2018-03-12] MEDS: PIPERACILLIN/TAZOBACTAM/D5W 2.25 G in PREMIXED 1 EACH IV SCH ×3 (05:48→21:33)
[2018-03-12] MEDS: PANTOPRAZOLE SODIUM 40 MG TABLET.DR PO SCH (06:09)
--- NOTE | 2018-03-12 06:30 | NUR ---
PATIENT ASLEEP. SLEPT WELL. YELLS OUT PERIODICALLY. VS WNL. BED ALARM ON. ALL NEEDS ATTENDED. WILL CONTINUE TO MONITOR AND ASSESS.
[2018-03-12] MEDS: BLOOD SUGAR DIAGNOSTIC 1 EACH STRIP VI SCH ×4 (06:36→20:55)
--- NOTE | 2018-03-12 07:30 | NUR ---
RECEIVED PATIENT EYES CLOSED BUT AROUSES EASILY SEEMS COMFORTABLE WITH O2 IN PROGRESS WITH NO SHORTNESS OF BREATH.LEFT HEEL WITH DRESSING INTACT AND FLOATED ON THE PILLOE MADE COMFORTABLE AND WILL CONTINUE TO OBSERVE.
[2018-03-12] MEDS: CARVEDILOL 6.25 MG TABLET PO SCH ×2 (08:00→18:00)
[2018-03-12] MEDS: CALCIUM ACETATE 667 MG CAPSULE PO SCH ×3 (08:00→18:00)
[2018-03-12] MEDS: ENSURE ENLIVE (VAN) 240 ML LIQUID PO SCH ×2 (08:00→16:19)
[2018-03-12] MEDS: ASPIRIN 81 MG TAB.CHEW PO SCH (08:52)
[2018-03-12] MEDS: CULTURELLE CAPSULE PO SCH ×2 (08:52→20:56)
[2018-03-12] MEDS: SERTRALINE HCL 50 MG TABLET PO SCH (08:52)
[2018-03-12] MEDS: THERAHONEY GEL 1.5 OZ TUBE TOP SCH (08:52)
[2018-03-12] MEDS: CLOPIDOGREL 75 MG TABLET PO SCH (08:52)
[2018-03-12] MEDS: SODIUM HYPOCHLORITE 0.125% 473 ML BOTTLE TP SCH (08:53)
--- NOTE | 2018-03-12 08:56 | NUR ---
AWOKE PATIENT UP FOR BREAKFAST AND MEDICATIONS REFUSED DESPITE ALL ATTEMPTS AND ENCOURAGEMENTS WILL CONTINUE TO OBSERVE
[2018-03-12] MEDS: Z GUARD REMEDY PASTE 57 GM TUBE TOP SCH ×2 (09:01→20:56)
--- NOTE | 2018-03-12 10:42 | NUR ---
AWAKE YELLING ON AND OFF NEEDS UNKNOWN UNABLE TO MAKE NEEDS KNOWN MADE COMFORTABLE AND WILL CONTINUE TO OBSERVE AND PROVIDE SAFE AND THERAPEUTIC ENVIRONMENT AT ALL TIMES.
[2018-03-12] MEDS: MORPHINE SULFATE 4 MG/1 ML DISP.SYRIN IV PRN (11:06)
[2018-03-12 11:18] VITALS: BP 109/56
[2018-03-12] MEDS: INSULIN REGULAR, HUMAN 300 UNIT/3 ML VIAL SQ PRN ×2 (11:26→21:05)
--- NOTE | 2018-03-12 11:53 | NUR ---
CALLED AND NOTIFIED DR ZA PAZ RE PATIENTS APPETITE HAS BEEN VERY POOR DESPITE ASSISTANCE AND ENCOURAGING HIM TO EAT REFUSES ALL HIA MEDICATIONS WITH NO NEW ORDERS AT THIS TIME.
--- NOTE | 2018-03-12 12:26 | NUR ---
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 Zosyn also started, not extended infusion dosing as per RNs pt repeatedly pulls IVs out, PICC line order placed 03/07 Objective: weight 50kg height 152cm BUN 108 (03/11) Scr 4.9 (03/11) Wbc 17.4 (03/11) temp 97.8 Random level @0600: 21 Assessment/Plan Based on today's random, will hold the dose for today, and will order another random level with am labs. Will check level tomorrow and dose again if indicated.
--- NOTE | 2018-03-12 15:20 | NUR ---
PATIENT HAS A PICC LINE DOUBLE LUMEN BUT THE RED PORTH IS DIFFICULT TO FLUSH DR ZA PAZ NOTIFIED WITH ORDERS AND NOTED.
[2018-03-12] MEDS ORDERED: ALTEPLASE 2 MG VIAL XX ONE (15:30)
[2018-03-12 15:55] VITALS: BP 126/54
--- NOTE | 2018-03-12 16:20 | NUR ---
BLOOD SUGAR AT THIS TIME IS 149 WHICH CALLS FOR 2 UNITS OF REGULAR INSULIN BUT THE PATIENT IS REFUSING TO EAT NOT EVEN TOLERATE ENSURE ORDERED SO INSULIN NOT GIVEN AT THIS TIME TO AVOID HYPO GLYCEMIA REACTIONS
--- NOTE | 2018-03-12 18:00 | NUR ---
DR ZA PAZ STATED THAT PATIENTS DAUGHTER AMADOR AWARE THAT PATIENT IS REFUSING ALL HIS MEDICATIONS AND FOOD.
[2018-03-12 20:00] VITALS: BP 121/67
[2018-03-12] MEDS: MIRTAZAPINE 15 MG TABLET PO SCH (20:56)
[2018-03-12] MEDS: ATORVASTATIN 40 MG TABLET PO SCH (20:56)
[2018-03-13 05:31] VITALS: BP 119/61
[2018-03-13] MEDS: PIPERACILLIN/TAZOBACTAM/D5W 2.25 G in PREMIXED 1 EACH IV SCH ×3 (06:08→22:14)
[2018-03-13] MEDS: PANTOPRAZOLE SODIUM 40 MG TABLET.DR PO SCH (06:41)
[2018-03-13] MEDS: BLOOD SUGAR DIAGNOSTIC 1 EACH STRIP VI SCH ×4 (06:41→20:47)
--- NOTE | 2018-03-13 07:20 | NUR ---
RECEIVED SHIFT REPORT. PATIENT IS ALERT AND ORIENTED X1 TO SELF. CALL LIGHT WITHIN REACH. BED IN LOW POSITION.
[2018-03-13] MEDS: CARVEDILOL 6.25 MG TABLET PO SCH ×2 (08:00→18:00)
[2018-03-13] MEDS: ENSURE ENLIVE (VAN) 240 ML LIQUID PO SCH ×2 (08:00→17:00)
[2018-03-13] MEDS: CALCIUM ACETATE 667 MG CAPSULE PO SCH ×3 (08:00→18:00)
[2018-03-13] MEDS: CULTURELLE CAPSULE PO SCH ×2 (09:00→20:25)
[2018-03-13] MEDS: ASPIRIN 81 MG TAB.CHEW PO SCH (09:00)
[2018-03-13] MEDS: SERTRALINE HCL 50 MG TABLET PO SCH (09:00)
[2018-03-13] MEDS: CLOPIDOGREL 75 MG TABLET PO SCH (09:00)
[2018-03-13] MEDS: SODIUM HYPOCHLORITE 0.125% 473 ML BOTTLE TP SCH (09:55)
[2018-03-13] MEDS: THERAHONEY GEL 1.5 OZ TUBE TOP SCH (09:56)
[2018-03-13] MEDS: Z GUARD REMEDY PASTE 57 GM TUBE TOP SCH ×2 (09:57→20:25)
[2018-03-13 11:26] VITALS: BP 108/57
--- NOTE | 2018-03-13 11:54 | NUR ---
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 Zosyn also started, not extended infusion dosing as per RNs pt repeatedly pulls IVs out, PICC line order placed 03/07 Objective: weight 50kg height 152cm BUN 108 (03/11) Scr 4.9 (03/11) Wbc 17.4 (03/11) temp 97.9 Random level @0600: 20.3 Assessment/Plan Based on today's random, will hold the dose for today, and will order another random level with am labs. Will check level tomorrow and dose again if indicated.
[2018-03-13] MEDS: INSULIN REGULAR, HUMAN 300 UNIT/3 ML VIAL SQ PRN ×2 (11:59→20:50)
[2018-03-13 16:12] VITALS: BP 129/48
--- NOTE | 2018-03-13 19:04 | NUR ---
PATIENT WAS NONCOOPERATIVE WITH CARE. PATIENT REFUSED ALL FOOD AND MEDICATIONS. PATIENT WAS TURNED FREQUENTLY AND KEPT COMFORTABLE.
[2018-03-13 20:00] VITALS: BP 126/57
[2018-03-13] MEDS: ATORVASTATIN 40 MG TABLET PO SCH (20:25)
[2018-03-13] MEDS: MIRTAZAPINE 15 MG TABLET PO SCH (20:25)
[2018-03-14 04:00] VITALS: BP 110/56
[2018-03-14] MEDS: PIPERACILLIN/TAZOBACTAM/D5W 2.25 G in PREMIXED 1 EACH IV SCH ×3 (05:35→21:01)
[2018-03-14] MEDS: PANTOPRAZOLE SODIUM 40 MG TABLET.DR PO SCH (06:05)
--- NOTE | 2018-03-14 06:05 | NUR ---
PATIENT ASLEEP. SLEPT WELL. YELLS OUT PERIODICALLY. VS WNL. BED ALARM ON. ALL NEEDS ATTENDED. WILL CONTINUE TO MONITOR AND ASSESS.
[2018-03-14] MEDS: BLOOD SUGAR DIAGNOSTIC 1 EACH STRIP VI SCH ×4 (06:32→22:13)
[2018-03-14 07:10] LABS: CARBON DIOXIDE 17 mmol/L (21-32); CHLORIDE 99 mmol/L (98-107); CREATININE 7.3 mg/dL (0.6-1.3); GLUCOSE 155 mg/dL (74-106); MAGNESIUM 2.5 mg/dL (1.8-2.4); VANCOMYCIN,RANDOM 22.2 ug/mL (18.0-26.0)
[2018-03-14 07:18] LABS: PHOSPHOROUS 8.7 mg/dL (2.5-4.9); UREA NITROGEN, BLOOD 155 mg/dL (7-18)
[2018-03-14 07:27] LABS: BASOPHILS # (AUTO) 0.1 K/uL (0.0-8.0); BASOPHILS % (AUTO) 0.4 % (0.0-2.0); EOSINOPHILS # (AUTO) 0.3 K/uL (0.0-0.7); EOSINOPHILS % (AUTO) 1.6 % (0.0-7.0); HEMATOCRIT 25.7 % (36.7-47.1); HEMOGLOBIN 8.3 g/dL (12.5-16.3); LYMPHOCYTES # (AUTO) 1.7 K/uL (20.0-40.0); MEAN CORPUSCULAR HEMOGLOBIN 30.7 uug (23.8-33.4); MEAN CORPUSCULAR HGB CONC 32 g/dL (32.5-36.3); MEAN CORPUSCULAR VOLUME 94.9 fL (73.0-96.2); MONOCYTES # (AUTO) 0.9 K/uL (2.0-10.0); MONOCYTES % (AUTO) 5.1 % (0.0-11.0); NEUTROPHILS # (AUTO) 14.3 K/uL (1.8-8.9); NEUTROPHILS % (AUTO) 82.9 % (38.5-71.5); PLATELET COUNT (AUTO) 211 K/uL (152-348); RED BLOOD CELL COUNT(AUTO) 2.71 MIL/uL (4.06-5.63)
[2018-03-14] MEDS: CARVEDILOL 6.25 MG TABLET PO SCH ×2 (08:00→16:56)
[2018-03-14] MEDS: CALCIUM ACETATE 667 MG CAPSULE PO SCH ×3 (08:00→16:57)
[2018-03-14] MEDS: ENSURE ENLIVE (VAN) 240 ML LIQUID PO SCH ×2 (08:00→16:55)
--- NOTE | 2018-03-14 08:00 | NUR ---
Pt jaundiced. IV patent and on TKO. Pt is comfortable in bed. L Heel floated wrapped with Kerlix.
[2018-03-14] MEDS: Z GUARD REMEDY PASTE 57 GM TUBE TOP SCH ×2 (08:25→22:15)
[2018-03-14] MEDS: THERAHONEY GEL 1.5 OZ TUBE TOP SCH (08:27)
[2018-03-14] MEDS: SODIUM HYPOCHLORITE 0.125% 473 ML BOTTLE TP SCH (08:28)
[2018-03-14] MEDS: CLOPIDOGREL 75 MG TABLET PO SCH (08:28)
[2018-03-14] MEDS: CULTURELLE CAPSULE PO SCH ×2 (08:28→21:00)
[2018-03-14] MEDS: ASPIRIN 81 MG TAB.CHEW PO SCH (08:28)
[2018-03-14] MEDS: SERTRALINE HCL 50 MG TABLET PO SCH (08:29)
[2018-03-14 09:32] LABS: EOSINOPHILS % (MANUAL) 1 % (0-8); LYMPHOCYTES % (MANUAL) 10 % (20-40); MONOCYTES % (MANUAL) 7 % (2-10); NEUTROPHILS % (MANUAL) 82 % (42-75); WHITE BLOOD COUNT (AUTO) 17.2 K/uL (3.6-10.2)
[2018-03-14 11:48] VITALS: BP 123/56
--- NOTE | 2018-03-14 12:19 | NUR ---
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 Zosyn also started, not extended infusion dosing as per RNs pt repeatedly pulls IVs out, PICC line order placed 03/07 Objective: weight 50kg height 152cm BUN 155 Scr 7.3 (Not on HD yet) Wbc 17.4 (03/11) temp 97.9 Random level @0600: 22.2 Assessment/Plan Based on today's random, will hold the dose for today, and will order another random level with am labs. Will check level tomorrow and dose again if indicated.
[2018-03-14] MEDS: INSULIN REGULAR, HUMAN 300 UNIT/3 ML VIAL SQ PRN ×2 (12:34→16:55)
[2018-03-14 15:50] VITALS: BP 132/63
--- NOTE | 2018-03-14 18:30 | NUR ---
Daughter here at bedside gave letter. Pt comfortable.
[2018-03-14 20:27] VITALS: BP 120/60
[2018-03-14] MEDS: MIRTAZAPINE 15 MG TABLET PO SCH (21:00)
[2018-03-14] MEDS: MORPHINE SULFATE 4 MG/1 ML DISP.SYRIN IV PRN (22:08)
--- NOTE | 2018-03-14 22:10 | NUR ---
Patient given PRN dose of morphine due to pain/discomfort when being repositioned. Family at bedside. Will continue to monitor
--- NOTE | 2018-03-14 22:30 | NUR ---
Patient non-compliant with eating/drinking & all oral medications. Patient is resting in bed comfortably. Will continue to monitor
[2018-03-15 05:12] VITALS: BP 128/56
[2018-03-15] MEDS: PIPERACILLIN/TAZOBACTAM/D5W 2.25 G in PREMIXED 1 EACH IV SCH ×2 (06:25→14:25)
[2018-03-15] MEDS: PANTOPRAZOLE SODIUM 40 MG TABLET.DR PO SCH (06:45)
[2018-03-15] MEDS: BLOOD SUGAR DIAGNOSTIC 1 EACH STRIP VI SCH ×3 (07:02→16:47)
[2018-03-15] MEDS: CARVEDILOL 6.25 MG TABLET PO SCH ×2 (08:00→16:47)
[2018-03-15] MEDS: ENSURE ENLIVE (VAN) 240 ML LIQUID PO SCH ×2 (08:00→16:47)
[2018-03-15] MEDS: CALCIUM ACETATE 667 MG CAPSULE PO SCH ×3 (08:00→16:47)
--- NOTE | 2018-03-15 08:00 | NUR ---
Pt calm and sleeping. Resp 15 labored. No s/s of pain. Plan of care for comfort care implemented. Oral care done. Call light is within reach.
[2018-03-15] MEDS: SODIUM HYPOCHLORITE 0.125% 473 ML BOTTLE TP SCH (08:50)
[2018-03-15] MEDS: THERAHONEY GEL 1.5 OZ TUBE TOP SCH (08:51)
[2018-03-15] MEDS: Z GUARD REMEDY PASTE 57 GM TUBE TOP SCH ×2 (08:51→21:00)
[2018-03-15] MEDS: INSULIN REGULAR, HUMAN 300 UNIT/3 ML VIAL SQ PRN ×2 (08:54→12:58)
[2018-03-15] MEDS: CULTURELLE CAPSULE PO SCH (09:00)
[2018-03-15] MEDS: ASPIRIN 81 MG TAB.CHEW PO SCH (09:00)
[2018-03-15] MEDS: SERTRALINE HCL 50 MG TABLET PO SCH (09:00)
[2018-03-15] MEDS: CLOPIDOGREL 75 MG TABLET PO SCH (09:00)
[2018-03-15] MEDS: MORPHINE SULFATE 4 MG/1 ML DISP.SYRIN IV PRN (10:05)
--- NOTE | 2018-03-15 11:23 | NUR ---
Pt suctioned secondary to pt vomited copious amount (300-400cc) green secretions. Zofran given for vomiting. No coughing noted after vomiting - aspiration precaution effective.
[2018-03-15 11:25] VITALS: BP 129/50
--- NOTE | 2018-03-15 13:43 | NUR ---
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 Zosyn also started, not extended infusion dosing as per RNs pt repeatedly pulls IVs out, PICC line order placed 03/07 Objective: weight 50kg height 152cm BUN 155 (03/15) Scr 7.3 (Not on HD yet) Wbc 17.4 (03/11) temp 97.8 Random level @0600: 21.7 Assessment/Plan Based on today's random, will hold the dose for today, and will order another random level with am labs. Will check level tomorrow and dose again if indicated.
[2018-03-15 15:21] VITALS: BP 120/56
--- NOTE | 2018-03-15 18:40 | NUR ---
Case Management spoke with family re: Starting Morphine Drip Tonight and pt is to have hospice evaluation personnel conference with family tomorrow. Pt traffic workforce representative RADHA (SON) [phone] agreeable with plan of care. No further N/V noted. Pt still very lethargic for any food and refusing to be fed. Family at bedside. Call light is within reach. awaiting orders to be input by DR PAZ.
[2018-03-15] MEDS ORDERED: MORPHINE SULFATE PF IV DRIP 250 MG in IV DEXTROSE 5% 240 ML IV PRN (19:00)
--- NOTE | 2018-03-15 19:30 | NUR ---
PATIENT ON BED , RESPONSIVE TO VERBAL STIMULI. NO DISTRESS NOTED . USING O2 @ 3LPM VIA NC. F/C DRAINING TEA CLSOED CLOUDY URINE . CONTINUING ON CONTACT ISOLATION . RELL CONTINUE TO MONITOR
[2018-03-15 20:18] VITALS: BP 119/59
[2018-03-16 04:46] VITALS: BP 119/47
--- NOTE | 2018-03-16 06:47 | NUR ---
PATIENT INTERMITTENTLY SLEEPING. CONTINUING ON COMFORT MEASURES. ON MORPHINE DRIP @ 4MG /HR. BREATHING 8 PER MINUTE. NO FACILA GRIMACES SHOWING ANY DISCOMFORT NOTED. WILL CONTINUE TO MONITOR.
--- NOTE | 2018-03-16 07:00 | NUR ---
BEGINNING OF SHIFT PATIENT IS SLEEPING. CONTINUING ON COMFORT MEASURES. ON MORPHINE DRIP @ 4MG /HR. BREATHING 7 PER MINUTE. NO DISCOMFORT AT THE MOMENT, NO FACIAL GRIMACES SHOWING ANY DISCOMFORT NOTED. SAFETY REINFORCED. WILL CONTINUE TO MONITOR.
[2018-03-16] MEDS: ENSURE ENLIVE (VAN) 240 ML LIQUID PO SCH (08:00)
--- NOTE | 2018-03-16 08:00 | NUR ---
PATIENT IS IN BED COMFORTABLE RR 8/MIN MORPHINE DRIP AT 4ML/HR CONT WITH COMFORT MEASURES
--- NOTE | 2018-03-16 08:35 | NUR ---
MORPHINE INCREASED UP TO 6ML/HR. PATIENTS RR 6. CONT COMFORT MEASURES.
[2018-03-16] MEDS: SODIUM HYPOCHLORITE 0.125% 473 ML BOTTLE TP SCH (08:40)
[2018-03-16] MEDS: Z GUARD REMEDY PASTE 57 GM TUBE TOP SCH (08:40)
[2018-03-16] MEDS: THERAHONEY GEL 1.5 OZ TUBE TOP SCH (08:40)
--- NOTE | 2018-03-16 10:00 | NUR ---
PATIENT IS IN BED COMFORTABLE RR 7/MIN MORPHINE DRIP AT 6ML/HR CONT WITH COMFORT MEASURES
[2018-03-16] MEDS ORDERED: ATROPINE SULFATE 1% OPHT DROP 2 ML OP PRN (11:15)
[2018-03-16 11:25] VITALS: BP 110/36
[2018-03-16 11:45] VITALS: BP 110/36
--- NOTE | 2018-03-16 12:00 | NUR ---
PATIENT IS IN BED COMFORTABLE RR 7/MIN MORPHINE DRIP AT 6ML/HR MOUTH CARE AND WOUND CARE DONE CONT WITH COMFORT MEASURES
--- NOTE | 2018-03-16 13:39 | NUR ---
Patient on comfort measures. Dietary services to monitor per protocol and remain available as needed. Addendum: 03/16/18 at [address] Amended: Links added.
--- NOTE | 2018-03-16 14:00 | NUR ---
PATIENT IS IN BED COMFORTABLE RR 5-6/MIN MORPHINE DRIP AT 6ML/HR CONT WITH COMFORT MEASURES
--- NOTE | 2018-03-16 16:30 | NUR ---
Family by the side. Daughter, son and other relatives. [employer] notified.
--- NOTE | 2018-03-16 16:30 | NUR ---
PATIENT APNEIC FOR 5 MIN PUPILS FIXED AND DILATED NO AUDIBLE HEART TONES SOUNDS FOR 5 MIN NO PALPABLE PULSES FOR 1 MIN NO CORNEAL REFLEXES PATIENT PRONOUNCED AT 1630, ROHONI. DR PAZ NOTIFIED
--- NOTE | 2018-03-16 19:02 | NUR ---
END OF SHIFT MORTAL SERVICES ARE NOTIFIED. CARE HAS BEEN GIVEN, PATIENT IS CLEAN, ALL DEVICES HAS BEEN REMOVED. FAMILY JUST LEFT THE FLOOR.
--- NOTE | 2018-03-16 19:16 | NUR ---
MORTUARY SERVICES JUST ARRIVED, HOSPICE NURSE SHO AT THE BED SIDE.
== END 2018-03-16 19:45 | disposition expired | DRG 673 ==
LOC: ER 17:04 → TELE 18:44 → MED 03-08 09:44
PROVIDERS: ATTEND Nurse Practitioner Acute Care
PROC: 02HV33Z Insertion of Infusion Device into Superior Vena Cava, Percutaneous Approach (ICD-10-PCS; principal; 2018-03-07)
PROC: 0JBR0ZZ Excision of Left Foot Subcutaneous Tissue and Fascia, Open Approach (ICD-10-PCS; 2018-03-09)
DX: N17.0 Acute kidney failure with tubular necrosis (principal); L89.623 Pressure ulcer of left heel, stage 3; I50.43 Acute on chronic combined systolic (congestive) and diastolic (congestive) heart failure; E43 Unspecified severe protein-calorie malnutrition; I13.0 Hypertensive heart and chronic kidney disease with heart failure and stage 1 through stage 4 chronic kidney disease, or unspecified chronic kidney disease; L03.116 Cellulitis of left lower limb; L97.811 Non-pressure chronic ulcer of other part of right lower leg limited to breakdown of skin; E87.1 Hypo-osmolality and hyponatremia; E11.65 Type 2 diabetes mellitus with hyperglycemia; Z51.5 Encounter for palliative care; E11.22 Type 2 diabetes mellitus with diabetic chronic kidney disease; Z66 Do not resuscitate; N18.9 Chronic kidney disease, unspecified; I50.84 End stage heart failure; Z79.4 Long term (current) use of insulin; E11.42 Type 2 diabetes mellitus with diabetic polyneuropathy; B95.62 Methicillin resistant Staphylococcus aureus infection as the cause of diseases classified elsewhere; B96.4 Proteus (mirabilis) (morganii) as the cause of diseases classified elsewhere; E11.622 Type 2 diabetes mellitus with other skin ulcer; E11.51 Type 2 diabetes mellitus with diabetic peripheral angiopathy without gangrene; M62.50 Muscle wasting and atrophy, not elsewhere classified, unspecified site; B35.1 Tinea unguium; B35.3 Tinea pedis; E78.5 Hyperlipidemia, unspecified; E83.42 Hypomagnesemia; E86.0 Dehydration; Z91.15 Patient's noncompliance with renal dialysis; I25.2 Old myocardial infarction; K21.9 Gastro-esophageal reflux disease without esophagitis; F03.90 Unspecified dementia, unspecified severity, without behavioral disturbance, psychotic disturbance, mood disturbance, and anxiety; Z74.01 Bed confinement status; I25.5 Ischemic cardiomyopathy; Z95.5 Presence of coronary angioplasty implant and graft; Z91.14 Patient's other noncompliance with medication regimen; I25.10 Atherosclerotic heart disease of native coronary artery without angina pectoris; F32.9 Major depressive disorder, single episode, unspecified; Z68.20 Body mass index [BMI] 20.0-20.9, adult
CPT/HCPCS: 36415; 36569; 70030-TC; 71045; 73630; 83735; 84100; 84156; 84300; 84443; 85025; 85730; 87070; 87077; 87086; 93005; 93307; 97110; 97112; 97530; A4217; A4663; C1751; C9113; G0378; J1170; J1630; J1644; J1650; J1815; J1940; J2060; J2270; J2274; J2405; J2543; J2997; J3370; J3475; J3490; J7030; J7040; J7060